=== PATIENT | male | born 1940 | race Caucasian/White ===

== ENCOUNTER 2017-12-01 07:34 | Day surgery (SDC) | payer OTHER ==
--- NOTE | 2017-11-27 16:08 | RAD REPORT ---
EXAM DESCRIPTION: RAD - Chest Pa And Lat (2 Views) - 11/27/2017 3:31 pm CLINICAL HISTORY: Preop chest, pending cardiac catheterization COMPARISON: None. TECHNIQUE: PA and lateral views of the chest were obtained. FINDINGS: The lungs are fibrotic as a baseline. A few scattered areas of nodularity are scattered in the lung parenchyma. These are relatively dense and are believed to be calcified granulomas. Worriso me lung parenchymal mass is not identifiable. Focal density superimposed on the anterior fourth and s ixth ribs believed to be the sequela of old rib trauma. Heart size is normal and central vasculature is within normal limits. No pleural effusion or pneumot horax seen. No acute bony finding noted. No aortic abnormality. IMPRESSION: No acute cardiopulmonary process suspected. Granulomata are noted in the lung parenchyma and there is old rib trauma anteriorly on the left.
[2017-11-27 16:16] LABS: Potassium 4.4 mmol/L (3.5-5.1)
[2017-11-27 16:22] LABS: Absolute Lymphocytes (CBC) 1.9 K/uL (0.7-4.9); Absolute Monocytes 0.6 K/uL (0.1-1.3); Absolute Neutrophil 4.9 K/uL (1.8-8.0); Basophils % 1.1 % (0-1.3); Eosinophils % 3.6 % (0-4.4); Hematocrit 45.3 % (39.6-49.0); Lymphocytes % 24.2 % (15.3-44.8); MCH 32.7 pg (27.0-35.0); MCV 94.5 fL (80-100); MPV 10.6 fL (7.6-11.3)
[2017-11-27 16:39] LABS: Protime INR 1.03
[2017-12-01] MEDS ORDERED: NA CHLORIDE 0.9% 500 ML ONE ×2 (07:52→09:20)
[2017-12-01 08:30] VITALS: O2SAT 100
[2017-12-01] MEDS ORDERED: NA CHLORIDE 0.9% 100 ML IV ONE (09:17)
[2017-12-01] MEDS ORDERED: HEPA 1000U/500MLS 2,000 UNIT/1,000 ML BAG IV ONE (09:24)
[2017-12-01] MEDS ORDERED: LIDOCAINE 1% MPF 2 ML AMPULE ONE (09:34)
[2017-12-01] MEDS ORDERED: FENTANYL CITR 100 MCG/2 ML ONE (09:35)
[2017-12-01] MEDS ORDERED: MIDAZOLAM HCL 2 MG/2 ML INJ ONE ×2 (09:35→09:48)
[2017-12-01] MEDS ORDERED: HEPA 1000U/500MLS 1,000 UNIT/500 ML BAG IV ONE (10:31)
[2017-12-01] MEDS ORDERED: NA CHLORIDE 0.9% 50 ML ONE (10:53)
[2017-12-01] MEDS ORDERED: PRASUGREL (EFFIENT) 10 MG TAB ONE (10:57)
[2017-12-01] MEDS ORDERED: ZOLPIDEM TARTRATE 5 MG TABLET PO PRN (10:59)
[2017-12-01] MEDS ORDERED: ACETAMINOPHEN 325 MG TABLET PO PRN (10:59)
[2017-12-01] MEDS ORDERED: NITROGLYCERIN 0.4 MG/TAB SL PRN (13:00)
[2017-12-01] MEDS ORDERED: NA CHLORIDE 0.9% 1,000 ML IV SCH (13:00)
[2017-12-01 16:02] VITALS: BMI 23.7
[2017-12-01] MEDS ORDERED: MELATONIN 3 MG TABLET PO PRN (20:00)
[2017-12-01] MEDS ORDERED: ROSUVASTATIN 10 MG TAB PO SCH (21:00)
[2017-12-01] MEDS ORDERED: LATANOPROST 0.005% 2.5ML OPTH OPTH SCH (21:00)
--- NOTE | 2017-12-01 21:51 | OP ---
Surgeon: Justyn Hernandez MD Procedure: Right and left heart catheterization, coronary angiography, percutaneous coronary interve ntion of the right coronary, successful 99% stenosis reduced to 0% stenosis. Procedure Findings: The patient had diffuse CAD mildly. The circumflex was 100% occluded, but it wa s after a large obtuse marginal branch and all the distal branches were very small. The LAD, left ma in, and circumflex were free of any significant stenosis. The right coronary was small, the largest dimension 2.5 mm, and it had a 99% lesion in the more distal part of the right coronary at the juncti on of the distal and mid portions of the right coronary; after stenting, that had 0% residual stenosi s. The patient had a right heart catheterization, revealed a cardiac output of 3.6, a mean gradient across the aortic valve of 38 mm, peak to peak 58. Estimated aortic valve area of 0.7 square cm. An ejection fraction was not calculated. We did not inject the left ventricle. Procedure In Detail: The patient was brought to the cardiac syrup machine laborer in a fasting state, sedated wit h Versed and fentanyl, prepared and draped in usual sterile fashion. Right femoral approach was used . We anesthetized the skin over the right femoral artery with lidocaine, entered it with an 18-gauge needle, used a 4-Ugandan sheath initially. For the stent, we did an exchange to switch it to a 6-Jeremie txh sheath. We used a 7-Ugandan sheath to go into the vein, likewise anesthesia with 1% lidocaine, en tered using an 18-gauge needle, modified Seldinger technique. We used the vein to do a Buchanan-Jack cat heter. We did thermodilution cardiac outputs and electronic manometry pressure. We used a JL4 to an giogram the left coronary, JR4 to angiogram the right coronary, and we used the JR4 to cross the valv e using a straight wire. The gradient was obtained, and the decision was made that he needed both a stent in the right coronary and a TAVR. I consulted with the surgeon who will be doing the TAVR. He was encouraging to put the stent in now and do the TAVR in a few weeks. Putting the stent in now wo uld not delay doing the TAVR (transcutaneous aortic valve replacement). We exchanged the 6-Ugandan sh eath, used a 3DRC 6-Ugandan with side holes. A Frazee wire was able to cross the lesion. We pre-dila sushma with a 2.5 x 15 Emerge balloon. We then stented the lesion with a 2.5 x 16 Synergy stent, deploy ed it to 10 atmospheres. This resulted in a proximal dissection and spasm. It did not relieve with nitroglycerin alone, so we placed a more proximal stent, Synergy 2.5 x 12. At the end of that second stent deployment, the angiographic result was excellent. Wire and catheters were withdrawn. Final pictures taken, and we took a picture of the arteriotomy using the sheath shot, 6 cc of contrast. We found adequate anatomy to allow us to do a closure using Angio-Seal. This was done successfully. T here were no complications from the procedure. Estimated blood loss 30 cc. Shellac Polisher: Elyse Damon. Our plan is to observe him overnight. If he is stable, discharge him tomorrow and send him to Dr. Nayla Munoz for transcutaneous aortic valve replacement within the next few weeks. ANGIE/BRANDEN Voice ID: [id number] Report ID: [id number]
[2017-12-02 04:56] LABS: Hematocrit 44.1 % (39.6-49.0); MCH 32.5 pg (27.0-35.0); MCV 94.4 fL (80-100); MPV 9.8 fL (7.6-11.3); RBC Red Blood Cell Count 4.67 M/uL (4.33-5.43)
[2017-12-02 05:11] LABS: Potassium 4.9 mmol/L (3.5-5.1)
[2017-12-02 08:59] VITALS: BP 123/72; TEMP 97.7
[2017-12-02] MEDS ORDERED: PRASUGREL (EFFIENT) 10 MG TAB PO SCH (09:00)
[2017-12-02] MEDS ORDERED: VITAMIN D 1000 UNIT TAB PO SCH (09:00)
[2017-12-02] MEDS ORDERED: ASPIRIN EC 81 MG TAB PO SCH (09:00)
[2017-12-02] MEDS ORDERED: CO Q PO SCH (09:00)
[2017-12-02] MEDS ORDERED: INFLUENZA VACCINE (for 3y+) 0.5 ML DOSE IMVAC ONE (10:00)
--- NOTE | 2017-12-02 13:00 | EKG ---
Test Date: 2017-12-02 Test Time: 08:40:22 Die Maker Apprentice: ZEE MEASUREMENT RESULTS: Intervals: Rate: 69 PA: 158 QRSD: 104 QT: 422 QTc: 452 Chamberlain: P: 73 PA: 158 QRS: 12 T: 21 INTERPRETIVE STATEMENTS: Sinus rhythm with occasional premature ventricular complexes Inferior infarct, age undetermined Abnormal ECG Compared to ECG 01/28/2000 06:51:00 Ventricular premature complex(es) now present Myocardial infarct finding now present Sinus bradycardia no longer present Electronically Signed On 12-02-17 12:57:59 CDT by Rafael Figueroa
== END 2017-12-02 10:28 | disposition home or self-care (01) ==
LOC: CCL 07:34 → 4TH 11:45 → CCL 12-02 10:28
PROVIDERS: ATTEND Internal Medicine
DX: I35.0 Nonrheumatic aortic (valve) stenosis (principal); I25.10 Atherosclerotic heart disease of native coronary artery without angina pectoris; I25.82 Chronic total occlusion of coronary artery; I10 Essential (primary) hypertension; Z87.891 Personal history of nicotine dependence; Z82.49 Family history of ischemic heart disease and other diseases of the circulatory system
CPT/HCPCS: 36415 ×2; 71046; 80048 ×2; 85025; 85027; 85610; 85730; 93005; 93460; C1725; C1760; C1893; C9600; J0583; J2001; J2250 ×2; J3010; Q2035